=== PATIENT | male | born 1970 | race Caucasian/White ===

== ENCOUNTER 2018-05-11 02:24 | Emergency (ER) | payer SELFPAY | END 2018-05-11 02:34 | disposition left against medical advice (07) | LOC: ED 02:26 | DX: J11.1 Influenza due to unidentified influenza virus with other respiratory manifestations (principal); Z53.21 Procedure and treatment not carried out due to patient leaving prior to being seen by health care provider ==

== ENCOUNTER 2018-05-12 01:00 | Emergency (ER) | payer SELFPAY ==
[~2018-05-12] VITALS: Ht 175.3 cm; Wt 74.4 kg
[2018-05-12 01:02] VITALS: BP 162/103
[2018-05-12 01:55] LABS: MICROSCOPIC NOT IND
[2018-05-12 01:58] LABS: CULTURE INDICATED? NO
[2018-05-12 02:06] LABS: AMPHETAMINE SCREEN, URINE Positive (Negative); BARBITURATE SCREEN, URINE Negative (Negative); BENZODIAZEPINE SCREEN, URINE Negative (Negative); CANNABINOID SCREEN, URINE Negative (Negative); COCAINE SCREEN, URINE Negative (Negative); METHADONE SCREEN, URINE Negative (Negative); OPIATE SCREEN, URINE Negative (Negative)
== END 2018-05-12 02:53 | disposition home or self-care (01) ==
LOC: ED 02:08
DX: N50.812 Left testicular pain (principal); N50.811 Right testicular pain; Z72.9 Problem related to lifestyle, unspecified; F15.129 Other stimulant abuse with intoxication, unspecified
CPT/HCPCS: 80307; 81003; 99284